=== PATIENT | male | born 1975 | race Caucasian/White ===

== ENCOUNTER 2018-11-21 07:23 | Emergency (ER) | payer BC ==
[~2018-11-21] VITALS: Ht 185.4 cm; Wt 97.5 kg
[~2018-11-21 07:23] MED LIST: BENTYL 20 MG TA20 M1 PO; BISACODYL SUPP10 MG RECTAL; GOLYTELY4000 M1 PO; MIRALAX17 GM PO
[2018-11-21] MEDS ORDERED: KEFLEX500 M1 PO (08:49)
[2018-11-21] MEDS ORDERED: HYDROCODONE-AP1 EAC6 PO (08:49)
[2018-11-21 08:50] VITALS: BP 116/83
== END 2018-11-21 08:50 | disposition home or self-care (01) ==
LOC: M.ERS 07:23
DX: S61.220A Laceration with foreign body of right index finger without damage to nail, initial encounter (principal); W22.8XXA Striking against or struck by other objects, initial encounter; Y93.89 Activity, other specified; Y92.89 Other specified places as the place of occurrence of the external cause; Y99.8 Other external cause status

== ENCOUNTER 2019-07-30 11:52 | Emergency (ER) | payer BC ==
[~2019-07-30] VITALS: Ht 185.4 cm; Wt 97.5 kg
[~2019-07-30 11:52] MED LIST changes: +HYDROCODONE-AP1 EAC6 PO; +KEFLEX500 M1 PO
[2019-07-30] MEDS ORDERED: CITRATE OF MAG296 M1 PO (12:25)
[2019-07-30 13:15] LABS: CALCIUM 8.1 mg/dL (8.5-10.1); CREATININE 1.2 mg/dL (0.6-1.3); POTASSIUM 3.8 mmol/L (3.5-5.1)
[2019-07-30 13:30] VITALS: BP 125/85
== END 2019-07-30 13:31 | disposition home or self-care (01) ==
LOC: M.ERS 11:52
PROVIDERS: Emergency Medicine Emergency Medical Services
DX: K59.00 Constipation, unspecified (principal)